=== PATIENT | male | born 1975 | race Caucasian/White ===

== ENCOUNTER 2017-07-30 16:41 | Emergency (ER) | payer OTHER ==
[2017-07-30 16:47] VITALS: BP 134/94; BMI 26.1
--- NOTE | 2017-07-30 17:09 | PDOC ---
History of Present Illness - General Chief Complaint: Sore Throat Stated Complaint: STOMACH PAIN Time Seen by Provider: 07/30/17 16:54 History Source: Patient Exam Limitations: No Limitations - History of Present Illness Initial Comments: CHIEF COMPLAINT: 41 y/o febrile, tachycardic male with no significant PMH c/o sudden onset of fever, body aches, cough, sore throat and runny nose since last night. HISTORY OF PRESENT ILLNESS: The patient states he's been taking 400mg of Advil every 6 hours. He denies BELTRAN, earache, CP, SOB, n/v/d, abd pain. He isn't eating much but is drinking liquids. Vital signs on arrival are notable for pulse of 119 secondary to temp of 103. REVIEW OF SYSTEMS: GENERAL/CONSTITUTIONAL: +fever. +body aches. HEAD, EYES, EARS, NOSE AND THROAT: +runny nose. No ear pain or discharge. + sore throat. CARDIOVASCULAR: No chest pain or shortness of breath. RESPIRATORY: +dry cough. No wheezing, or hemoptysis. GASTROINTESTINAL: No abd pain, nausea, vomiting, diarrhea. GENITOURINARY: No dysuria, frequency, or change in urination. MUSCULOSKELETAL: No joint or muscle swelling or pain. No neck or back pain. SKIN: No rash or easy bruising. NEUROLOGIC: No headache, vertigo, loss of consciousness, or loss of sensation. PHYSICAL EXAM: GENERAL: The patient is awake, alert, and fully oriented, in no acute distress. He is non toxic but ill appearing. HEAD: Normal with no signs of trauma. ENT: Pupils equal, round and reactive to light, extraocular movements intact, sclera anicteric, conjunctiva clear. Neck supple. LUNGS: Clear to auscultation bilaterally. Normal excursion. No respiratory distress or use of accessory muscles. CV: RRR, S1/S2, no MRG. Cap refill < 2 sec. ABDOMEN: Soft, non-distended, non-tender even to deep palpation, no hepatomegaly or splenomegaly, no masses. EXTREMITIES: Normal range of motion, no edema. NEUROLOGICAL: Normal speech, normal gait. CN II-XII grossly intact. PSYCH: Normal mood, normal affect. SKIN: Warm, dry, normal turgor, no rashes or lesions noted. Past History - Past Medical History Allergies/Adverse Reactions: Allergies Allergy/AdvReac Type Severity Reaction Status Date / Time No Known Allergies Allergy Verified 07/30/17 16:46 Home Medications: Ambulatory Orders Oseltamivir Phosphate [Tamiflu] 75 mg PO BID #10 capsule 07/30/17 COPD: No Hypercholesterolemia: Yes - Surgical History Appendectomy: Yes - Suicide/Smoking/Psychosocial Hx Smoking History: Never smoked *Physical Exam - Vital Signs Last Vital Signs Temp Pulse Resp BP Pulse Ox 103 F H 119 H 20 134/94 97 07/30/17 16:44 07/30/17 16:44 07/30/17 16:44 07/30/17 16:44 07/30/17 16:44 Medical Decision Making - Medical Decision Making A/P: 41 y/o febrile, tachycardic male with signs and symptoms of the flu. Plan is as follows: 1. PO tylenol 2. CXR CXR IMPRESSION: (wet read) No pneumonia Patient's temp and HR improved. will send rx for tamiflu. Instructed him to alternate between tylenol and motrin every 3 hours for fever, drink plenty of fluids, get lots of rest and return to the ER with any worsening or concerning symptoms. The patient verbalizes understanding of all instructions, has no further questions and is awaiting discharge. *DC/Admit/Observation/Transfer Diagnosis at time of Disposition: Influenza - Discharge Dispostion Disposition: HOME Condition at time of disposition: Improved - Prescriptions Prescriptions: Oseltamivir Phosphate [Tamiflu] 75 mg PO BID #10 capsule - Referrals Referrals: Pati Rush MD [Primary Care Provider] - - Patient Instructions Printed Discharge Instructions: DI for Influenza -- Adult Additional Instructions: Discharge Instructions: -You have the flu. -A prescription for flu medicine has been sent to your pharmacy -You should continue to take medicine for your fever: alternate 650mg of over the counter tylenol with 600mg of advil every 3 hours for fever -DRink plenty of fluids -Get lots of rest -Return to the ER with any worsening or concerning symptoms Instrucciones de descarga: -Usted tiene la gripe. -Henny receta para el medicamento contra la gripe beltran sido enviada a haque farmacia -Debe seguir tomando medicamentos para la fiebre: alternar 650 mg de Tylenol sin receta con 600 mg de Advil cada 3 horas para la fiebre -Beber mucho lquido -Descansa mucho -Volver a la markell de urgencias con cualquier empeoramiento o sntomas - Post Discharge Activity
[2017-07-30] MEDS ORDERED: ACETAMINOPHEN 325 MG TABLET (FP) ONE (17:29)
[2017-07-30] MEDS ORDERED: ACETAMINOPHEN 325 MG TABLET (FP) PO ONE (17:29)
[2017-07-30] MEDS ORDERED: IBUPROFEN 400 MG TABLET (FP) PO ONE ×2 (18:14→18:15)
[2017-07-30 18:48] VITALS: PULSE 100; TEMP 101
== END 2017-07-30 19:00 | disposition home or self-care (01) ==
LOC: JERFT 16:41
DX: J11.1 Influenza due to unidentified influenza virus with other respiratory manifestations (principal)
CPT/HCPCS: 71046-TC-FY; 99281-25